=== PATIENT | female | born 1965 | race Caucasian/White ===

== ENCOUNTER → 2018-10-29 | Outpatient (CLI) | payer BC ==
--- NOTE | 2018-10-29 14:17 | BD ---
EXAMINATION TYPE: Axial Bone Density DATE OF EXAM: 10/29/2018 COMPARISON: 09/19/2016 CLINICAL HISTORY: Postmenopausal female. Osteoporosis screening. Height: 59 IN Weight: 146 LBS Secondary Osteoporosis: Current Tobacco Use: YES RISK FACTORS HISTORY OF: Active: YES Postmenopausal woman: AGE 43 EXAM MEASUREMENTS: Bone mineral densitometry was performed using the [employer] System. Bone mineral density as measured about the Lumbar spine is: ----- L1-L4(G/cm2): 1.008 T Score Values are as follows: ----- L2: -2.4 ----- L3: -1.3 ----- L4: -0.7 ----- L1-L4: -1.4 Bone mineral density has: NO CHANGE 0.0% since study of: 09/19/2016 Bone mineral density about the R hip (g/cm2): 0.830 Bone mineral density about the L hip (g/cm2): 0.866 T Score values are as follows: -----R Neck: -1.5 -----L Neck: -1.2 -----R Total: -0.8 -----L Total: -0.5 Bone mineral density has: Increased 0.4% since study of: 09/19/2016 IMPRESSION: Osteopenia (T Score between -2.5 and -1). There is slightly increased risk of fracture and the patient may be considered for treatment. Re-Screen 2-5 years. NOTE: T-SCORE=SD OF THE YOUNG ADULT MEAN.
--- NOTE | 2018-11-02 07:38 | MM ---
Reason for exam: screening (asymptomatic). Last mammogram was performed 2 years and 1 month ago. History: Patient is postmenopausal. Family history of breast cancer in maternal aunt at age 60. Physical Findings: A clinical breast exam by your physician is recommended on an annual basis and results should be correlated with mammographic findings. MG 3D Screening Mammo W/Cad Bilateral CC and MLO view(s) were taken. Prior study comparison: September 19, 2016, bilateral MG 3d screening mammo w/cad. March 23, 2015, bilateral MG diagnostic mammo w CAD MIKE. The breast tissue is heterogeneously dense. This may lower the sensitivity of mammography. No significant changes when compared with prior studies. ASSESSMENT: Benign, BI-RAD 2 RECOMMENDATION: Routine screening mammogram of both breasts in 1 year.
== END | disposition home or self-care (01) ==
LOC: RADMAMWWP 12:52
PROVIDERS: ATTEND Obstetrics & Gynecology
DX: Z12.31 Encounter for screening mammogram for malignant neoplasm of breast (principal); Z80.3 Family history of malignant neoplasm of breast; M85.80 Other specified disorders of bone density and structure, unspecified site; Z78.0 Asymptomatic menopausal state
CPT/HCPCS: 77063; 77067; 77080

== ENCOUNTER → 2018-12-02 | Outpatient (CLI) | payer BC ==
[2018-12-02 11:17] LABS: Basophils % (A) 1 %; Eosinophils # (A) 0.1 k/uL (0-0.7); Eosinophils % (A) 1 %; HCT 44.5 % (34.0-46.0); HGB 14.4 gm/dL (11.4-16.0); Lymphocytes # (A) 1.3 k/uL (1.0-4.8); Lymphocytes % (A) 23 %; MCH 30.3 pg (25.0-35.0); MCHC 32.3 g/dL (31.0-37.0); Mean Platelet Volume 8.8; Monocytes # (A) 0.4 k/uL (0-1.0); Monocytes % (A) 6 %; Neutrophils # (A) 3.7 k/uL (1.3-7.7); Neutrophils % (A) 66 %; Platelet Count 188 k/uL (150-450); RBC 4.74 m/uL (3.80-5.40); RDW 12.8 % (11.5-15.5); WBC 5.6 k/uL (3.8-10.6)
[2018-12-02 18:35] LABS: Albumin 4.4 g/dL (3.80-4.90); Albumin/Globulin Ratio 2.1 (1.20-2.10); Anion Gap 6.7 mmol/L (4.00-12.00); Calcium 9.4 mg/dL (8.7-10.3); Carbon Dioxide 27.3 mmol/L (21.6-31.8); Globulin 2.1 g/dL (1.6-3.3); LDL Cholesterol,Calculated 133.8 mg/dL (0.0-131.0); Total Bilirubin 0.6 mg/dL (0.2-1.2); Total Protein 6.5 g/dL (6.2-8.2); VLDL Calculation 23.2 mg/dL (5.00-40.00)
[2018-12-02 18:42] LABS: T4, Free (Free Thyroxine) 1.2 ng/dL (0.80-1.80)
== END | disposition home or self-care (01) ==
LOC: LABWHC1 09:55
PROVIDERS: ATTEND Internal Medicine Cardiovascular Disease
DX: Z00.01 Encounter for general adult medical examination with abnormal findings (principal); R00.2 Palpitations
CPT/HCPCS: 36415; 80053; 80061; 84439; 84443; 85025

== ENCOUNTER 2019-09-06 11:55 | Observation (INO) | payer BC ==
[2019-09-06] MEDS ORDERED: ONDANSETRON 4 MG/2 ML VIAL IVP STA (12:25)
[2019-09-06] MEDS ORDERED: KETOROLAC 30 MG/ML 1 ML VIAL IVP STA (12:25)
[2019-09-06] MEDS ORDERED: SODIUM CHLORIDE 0.9% 1,000 ML IV STA (12:25)
--- NOTE | 2019-09-06 12:44 | ED ---
Female Urogenital HPI - General Chief complaint: Urogenital Stated complaint: fever/blood in urine Time Seen by Provider: 09/06/19 12:03 Source: patient Mode of arrival: ambulatory Limitations: no limitations - History of Present Illness Initial comments: Patient is a 54-year-old female presenting to the emergency Department with complaints of right sided flank pain x 10 days. Patient states she has been traveling for the past week when her symptoms began. Patient started having right flank pain that resembled her previous kidney stone pain. Patient then had some blood in her urine and was treated for UTI with Bactrim for the last 10 days. Patient states the pain has not improved and then last night she developed a fever. Patient is also having nausea. Patient went to the urgent care today and was noted to have a fever 103, patient did take 2 Tylenol and then was sent to the ER. Patient states she finished her Bactrim yesterday. Patient has been taking Azo for symptom relief. Patient states she feels like she is not able to pee as much as she thinks she should be able to. Patient admits to history of , cholecystectomy, laparotomy for adhesions. Patient's last bowel movement was yesterday and was normal. Patient denies any other abdominal pain, diarrhea. Patient has no other complaints at this time. Upon arrival to ER, temperature is 99.9, pulse 119, respiratory 22, BP 95/63. 98% on room air. - Related Data Home Medications Medication Instructions Recorded Confirmed Cranberry Fruit Concentrate [Azo 250 mg PO DAILY 09/06/19 09/06/19 Cranberry] Sulfamethox-Tmp 800-160Mg [Bactrim 1 tab PO BID 09/06/19 09/06/19 DS 800-160 mg] Allergies Allergy/AdvReac Type Severity Reaction Status Date / Time Penicillins Allergy Anaphylaxis Verified 09/06/19 12:17 codeine AdvReac Nausea & Verified 09/06/19 12:17 Vomiting erythromycin base AdvReac Nausea & Verified 09/06/19 12:17 Vomiting Review of Systems ROS Statement: Those systems with pertinent positive or pertinent negative responses have been documented in the HPI. ROS Other: All systems not noted in ROS Statement are negative. Past Medical History Past Medical History: No Reported History History of Any Multi-Drug Resistant Organisms: None Reported Past Surgical History: Section, Cholecystectomy Additional Past Surgical History / Comment(s): D&C, Laparotomy, Past Anesthesia/Blood Transfusion Reactions: Motion Sickness, Postoperative N ausea & Vomiting (PONV) Additional Past Anesthesia/Blood Transfusion Reaction / Comment(s): Hx of vertigo Past Psychological History: No Psychological Hx Reported Smoking Status: Current every day smoker - Past Family History Father Family Medical History: Cancer Additional Family Medical History / Comment(s): Prostate CA and Lymphoma. General Exam - General Exam Comments Initial Comments: GENERAL: Well-nourished , flushed appearance, appears uncomfortable. HEAD: Atraumatic, normocephalic. EYES: Pupils equal round and reactive to light, extraocular movements intact, sclera anicteric, conjunctiva are normal. ENT: Nares patent, oropharynx clear without exudates. Moist mucous membranes. NECK: Normal range of motion, supple without lymphadenopathy or JVD. LUNGS: Breath sounds clear to auscultation bilaterally and equal. No wheezes rales or rhonchi. HEART: Regular rate and rhythm without murmurs, rubs or gallops. ABDOMEN: Positive bilateral flank pain as well as right-sided abdominal pain. Soft, normoactive bowel sounds. No guarding, no rebound. No masses appreciated. : Deferred EXTREMITIES: Normal range of motion, no pitting or edema. No clubbing or cyanosis. NEUROLOGICAL: Cranial nerves II through XII grossly intact. Normal speech, normal gait. PSYCH: Normal mood, normal affect. SKIN: Warm, Dry, normal turgor, no rashes or lesions noted. Limitations: no limitations Course Vital Signs 09/06/19 11:56 Temperature 99.9 F H Pulse Rate 119 H Respiratory 22 Rate Blood Pressure 95/63 O2 Sat by Pulse 98 Oximetry Medical Decision Making - Medical Decision Making Patient is a 54-year-old female with right-sided flank pain 10 days. Patient was recently treated for UTI and finished course of Bactrim yesterday. Patient developed fever last night and today. Patient was febrile and tachycardia on arrival. Labs are unimpressive, white count is 2.5. UA is normal. CT without contrast shows no evident renal stone. Probable left adrenal adenoma. Correlate for possible cystitis. Diverticulosis. Patient was given fluids, pain control, Zofran and Reglan for symptoms. Patient continues to have pain. Patient will be admitted for possible pyelonephritis. Patient will be started on Rocephin and will continue with pain control. Case is discussed with Dr. Champion who also evaluated the patient and agrees with plan of care. Patient accepted by Dr. Campos. - Lab Data Result diagrams: 09/06/19 12:54 09/06/19 12:54 Lab Results 09/06/19 09/06/19 09/06/19 Range/Units 12:00 12:54 12:54 WBC 2.5 L (3.8-10.6) k/uL RBC 4.52 (3.80-5.40) m/uL Hgb 14.0 (11.4-16.0) gm/dL Hct 41.2 (34.0-46.0) % MCV 91.2 (80.0-100.0) fL MCH 31.1 (25.0-35.0) pg MCHC 34.1 (31.0-37.0) g/dL RDW 12.5 (11.5-15.5) % Plt Count 131 L (150-450) k/uL Neutrophils % 79 % Lymphocytes % 8 % Monocytes % 7 % Eosinophils % 1 % Basophils % 2 % Neutrophils # 2.0 (1.3-7.7) k/uL Lymphocytes # 0.2 L (1.0-4.8) k/uL Monocytes # 0.2 (0-1.0) k/uL Eosinophils # 0.0 (0-0.7) k/uL Basophils # 0.1 (0-0.2) k/uL Sodium 136 L (137-145) mmol/L Potassium 4.1 (3.5-5.1) mmol/L Chloride 104 (98-107) mmol/L Carbon Dioxide 22 (22-30) mmol/L Anion Gap 10 mmol/L BUN 13 (7-17) mg/dL Creatinine 0.92 (0.52-1.04) mg/dL Est GFR (CKD-EPI)AfAm 81 (>60 ml/min/1.73 sqM) Est GFR (CKD-EPI)NonAf 70 (>60 ml/min/1.73 sqM) Glucose 95 (74-99) mg/dL Plasma Lactic Acid Solomon (0.7-2.0) mmol/L Calcium 9.1 (8.4-10.2) mg/dL Total Bilirubin 0.3 (0.2-1.3) mg/dL AST 42 H (14-36) U/L ALT 27 (9-52) U/L Alkaline Phosphatase 83 (38-126) U/L Total Protein 6.8 (6.3-8.2) g/dL Albumin 4.0 (3.5-5.0) g/dL Urine Color Yellow Urine Appearance Clear (Clear) Urine pH 5.5 (5.0-8.0) Ur Specific [place] 1.022 (1.001-1.035) Urine Protein Negative (Negative) Urine Glucose (UA) Negative (Negative) Urine Ketones Negative (Negative) Urine Blood Moderate H (Negative) Urine Nitrite Negative (Negative) Urine Bilirubin Negative (Negative) Urine Urobilinogen <2.0 (<2.0) mg/dL Ur Leukocyte Esterase Negative (Negative) Urine RBC 2 (0-5) /hpf Urine WBC <1 (0-5) /hpf Ur Squamous Epith Cells 1 (0-4) /hpf Urine Mucus Rare H (None) /hpf 09/06/19 Range/Units 12:54 WBC (3.8-10.6) k/uL RBC (3.80-5.40) m/uL Hgb (11.4-16.0) gm/dL Hct (34.0-46.0) % MCV (80.0-100.0) fL MCH (25.0-35.0) pg MCHC (31.0-37.0) g/dL RDW (11.5-15.5) % Plt Count (150-450) k/uL Neutrophils % % Lymphocytes % % Monocytes % % Eosinophils % % Basophils % % Neutrophils # (1.3-7.7) k/uL Lymphocytes # (1.0-4.8) k/uL Monocytes # (0-1.0) k/uL Eosinophils # (0-0.7) k/uL Basophils # (0-0.2) k/uL Sodium (137-145) mmol/L Potassium (3.5-5.1) mmol/L Chloride (98-107) mmol/L Carbon Dioxide (22-30) mmol/L Anion Gap mmol/L BUN (7-17) mg/dL Creatinine (0.52-1.04) mg/dL Est GFR (CKD-EPI)AfAm (>60 ml/min/1.73 sqM) Est GFR (CKD-EPI)NonAf (>60 ml/min/1.73 sqM) Glucose (74-99) mg/dL Plasma Lactic Acid Solomon 0.8 (0.7-2.0) mmol/L Calcium (8.4-10.2) mg/dL Total Bilirubin (0.2-1.3) mg/dL AST (14-36) U/L ALT (9-52) U/L Alkaline Phosphatase (38-126) U/L Total Protein (6.3-8.2) g/dL Albumin (3.5-5.0) g/dL Urine Color Urine Appearance (Clear) Urine pH (5.0-8.0) Ur Specific [place] (1.001-1.035) Urine Protein (Negative) Urine Glucose (UA) (Negative) Urine Ketones (Negative) Urine Blood (Negative) Urine Nitrite (Negative) Urine Bilirubin (Negative) Urine Urobilinogen (<2.0) mg/dL Ur Leukocyte Esterase (Negative) Urine RBC (0-5) /hpf Urine WBC (0-5) /hpf Ur Squamous Epith Cells (0-4) /hpf Urine Mucus (None) /hpf Disposition Clinical Impression: Pyelonephritis Disposition: ADMITTED IP TO THIS HOSP Condition: Stable Is patient prescribed a controlled substance at d/c from ED?: No Referrals: Krish Padilla DO [Primary Care Provider] - 1-2 days Decision Date: 09/06/19 Decision Time: 15:40
[2019-09-06 13:19] LABS: Appearance,Urine Clear (Clear); Bilirubin,Urine Negative (Negative); Blood,Urine Moderate (Negative); Color,Urine Yellow; Glucose,Urine (UA) Negative (Negative); Ketones,Urine Negative (Negative); Leukocyte Esterase,Urine Negative (Negative); Mucus,Urine Rare /hpf; Nitrite,Urine Negative (Negative); PH, Urine 5.5 (5.0-8.0); Protein,Urine Negative (Negative); RBC,Urine 2 /hpf (0-5); Specific Gravity,Urine 1.022 (1.001-1.035); Squamous Epithelial Cell,Urine 1 /hpf (0-4); Urobilinogen,Urine <2.0 mg/dL (<2.0)
[2019-09-06 13:26] LABS: Calcium 9.1 mg/dL (8.4-10.2); Total Bilirubin 0.3 mg/dL (0.2-1.3); Total Protein 6.8 g/dL (6.3-8.2)
[2019-09-06 13:31] LABS: Basophils # (A) 0.1 k/uL (0-0.2); Basophils % (A) 2 %; Eosinophils % (A) 1 %; HCT 41.2 % (34.0-46.0); Lymphocytes # (A) 0.2 k/uL (1.0-4.8); Lymphocytes % (A) 8 %; MCH 31.1 pg (25.0-35.0); MCHC 34.1 g/dL (31.0-37.0); MCV 91.2 fL (80.0-100.0); Mean Platelet Volume 6.7; Monocytes # (A) 0.2 k/uL (0-1.0); Monocytes % (A) 7 %; Neutrophils % (A) 79 %; Platelet Count 131 k/uL (150-450); RBC 4.52 m/uL (3.80-5.40); RDW 12.5 % (11.5-15.5); WBC 2.5 k/uL (3.8-10.6)
[2019-09-06 13:35] LABS: Potassium 4.1 mmol/L (3.5-5.1)
--- NOTE | 2019-09-06 13:46 | CT ---
EXAMINATION TYPE: CT abdomen pelvis wo con DATE OF EXAM: 09/06/2019 COMPARISON: Previous CT 02/22/2010 HISTORY: Fever. Blood in urine. History of renal stones CT DLP: 514.5 mGycm Automated exposure control for dose reduction was used. TECHNIQUE: Helical acquisition of images from the lung bases through the pelvis. FINDINGS: Lack of contrast likely compromises the sensitivity of the exam. LUNG BASES: No significant abnormality is appreciated. AORTA: No significant abnormality is appreciated. LIVER/GB: Patient is post cholecystectomy. Surgical clip is present adjacent to inferior margin of th e right lobe of the liver. PANCREAS: No significant abnormality is seen. SPLEEN: No significant abnormality is seen. ADRENALS: Centimeter low dense left adrenal mass likely represents an adenoma. KIDNEYS: No significant abnormality is seen. REPRODUCTIVE ORGANS: No significant abnormality is seen. URINARY BLADDER: Bladder wall thickening is indeterminate, correlate for possible cystitis. BOWEL: Diverticular changes noted in the sigmoid colon. Appendix is normal. FREE AIR: No Free Air is visible. ASCITES: None visible. PELVIC ADENOPATHY: None visualized. RETROPERITONEAL ADENOPATHY: No Retroperitoneal Adenopathy visible. OSSEOUS STRUCTURES: Degenerative disc changes are noted in the visualized spine. IMPRESSION: NONCONTRAST EXAM. POSTOP CHANGES. NO EVIDENT RENAL CALCULUS. PROBABLE LEFT ADRENAL ADENOMA. CORRELATE FOR POSSIBLE CYSTITIS. DIVERTICULOSIS.
[2019-09-06] MEDS ORDERED: MORPHINE SULFATE 4 MG/ML SYRINGE IVP STA (13:53)
[2019-09-06] MEDS ORDERED: METOCLOPRAMIDE 5 MG/ML 2 ML VIAL IVP STA (13:53)
[2019-09-06] MEDS ORDERED: NALOXONE 0.4 MG/ML 1 ML VIAL IV PRN (15:34)
[2019-09-06] MEDS ORDERED: ONDANSETRON 4 MG/2 ML VIAL IVP PRN (15:34)
[2019-09-06] MEDS ORDERED: MORPHINE SULFATE 4 MG/ML SYRINGE IV PRN (15:34)
[2019-09-06] MEDS ORDERED: HYDROmorphone 0.5 MG/0.5 ML SYRINGE IVP STA (15:37)
[2019-09-06] MEDS: SODIUM CHLORIDE 0.9% 1,000 ML IV SCH (16:24)
[2019-09-06] MEDS: traMADol 50 MG TAB PO PRN (22:50)
[2019-09-07] MEDS ORDERED: traMADol 50 MG TAB ONE (05:45)
[2019-09-07] MEDS: ACETAMINOPHEN TAB 325 MG TAB PO PRN ×2 (10:37→20:02)
[2019-09-07] MEDS: SODIUM CHLORIDE 0.9% 1,000 ML IV SCH (10:41)
[2019-09-07] MEDS: traMADol 50 MG TAB PO PRN ×2 (11:30→21:40)
--- NOTE | 2019-09-07 15:05 | P.HPIM ---
History of Present Illness 54-year-old female came in with complaints of pain in the left lower paraspinal area patient was believed to have urinary tract infection because of which patient was admitted here. Patient denied any dysuria was having fever of 103 yesterday although patient didn't have any fever since her hospitalization here. Patient is on Bactrim urine is bit abnormal. I do not expect blood cultures to be positive her urine cultures to be positive as patient was partially treated with Bactrim patient was on Bactrim for urinary tract infection prescribed her primary care physician although patient has not been taking it on regular basis, patient had a CAT scan of the abdomen which did show cystitis and patient does have some suprapubic tenderness because of which I'll continue treatment for urinary tract infection with Rocephin patient is in cultures are positive as an outpatient which showed E. coli which is sensitive to cephalosporins and patient is on 2 mg of ceftriaxone which is an appropriate dose of cephalosporin for her UTI. Patient blood pressure is low normal patient is on IV fluids for that. Review of Systems REVIEW OF SYSTEMS: CONSTITUTIONAL: No fever, no malaise, no fatigue. HEENT: No recent visual problems or hearing problems. Denied any sore throat. CARDIOVASCULAR: No chest pain, orthopnea, PND, no palpitations, no syncope. PULMONARY: No shortness of breath, no cough, no hemoptysis. GASTROINTESTINAL: No diarrhea, no nausea, no vomiting, no abdominal pain. NEUROLOGICAL: No headaches, no weakness, no numbness. HEMATOLOGICAL: Denies any bleeding or petechiae. GENITOURINARY: As mentioned in HPI MUSCULOSKELETAL/RHEUMATOLOGICAL: Denies any joint pain, swelling, or any muscle pain. ENDOCRINE: Denies any polyuria or polydipsia. The rest of the 14-point review of systems is negative. Past Medical History Past Medical History: No Reported History History of Any Multi-Drug Resistant Organisms: None Reported Past Surgical History: Section, Cholecystectomy Additional Past Surgical History / Comment(s): D&C, Laparotomy, Past Anesthesia/Blood Transfusion Reactions: Motion Sickness, Postoperative Nausea & Vomiting (PONV) Additional Past Anesthesia/Blood Transfusion Reaction / Comment(s): Hx of vertigo Past Psychological History: No Psychological Hx Reported Smoking Status: Current every day smoker - Past Family History Father Family Medical History: Cancer Additional Family Medical History / Comment(s): Prostate CA and Lymphoma. Medications and Allergies Home Medications Medication Instructions Recorded Confirmed Type Cranberry Fruit Concentrate [Azo 250 mg PO DAILY 09/06/19 09/06/19 History Cranberry] Sulfamethox-Tmp 800-160Mg [Bactrim 1 tab PO BID 09/06/19 09/06/19 History DS 800-160 mg] Allergies Allergy/AdvReac Type Severity Reaction Status Date / Time Penicillins Allergy Anaphylaxis Verified 09/06/19 12:17 codeine AdvReac Nausea & Verified 09/06/19 12:17 Vomiting erythromycin base AdvReac Nausea & Verified 09/06/19 12:17 Vomiting Physical Exam Vitals: Vital Signs Temp Pulse Pulse Resp BP BP BP 09/07/19 12:19 98.2 F 89 20 97/57 09/07/19 09:30 99.5 F 09/07/19 07:57 105 H 09/07/19 07:56 99.5 F 105 H 20 97/55 09/07/19 00:00 87 16 09/06/19 22:59 99.1 F 87 16 113/70 09/06/19 20:48 98.7 F 91 16 96/57 09/06/19 17:30 98.2 F 86 18 99/66 09/06/19 17:05 84 18 100/69 Pulse Ox 09/07/19 12:19 94 L 09/07/19 09:30 09/07/19 07:57 09/07/19 07:56 94 L 09/07/19 00:00 09/06/19 22:59 97 09/06/19 20:48 96 09/06/19 17:30 97 09/06/19 17:05 98 Intake and Output 09/07/19 09/07/19 09/07/19 06:59 14:59 22:59 Intake Total 600 Output Total 550 800 Balance -550 -200 Intake: Oral 600 Output: Urine 550 800 Other: Voiding Method Toilet Toilet PHYSICAL EXAMINATION: GENERAL: The patient is alert and oriented x3, not in any acute distress. Well developed, well nourished. HEENT: Pupils are round and equally reacting to light. EOMI. No scleral icterus. No conjunctival pallor. Normocephalic, atraumatic. No pharyngeal erythema. No thyromegaly. CARDIOVASCULAR: S1 and S2 present. No murmurs, rubs, or gallops. PULMONARY: Chest is clear to auscultation, no wheezing or crackles. ABDOMEN: Soft, minimal suprapubic tenderness no costo vertebral angle tenderness, nondistended, normoactive bowel sounds. No palpable organomegaly. MUSCULOSKELETAL: No joint swelling or deformity. EXTREMITIES: No cyanosis, clubbing, or pedal edema. NEUROLOGICAL: Gross neurological examination did not reveal any focal deficits. SKIN: No rashes. Results CBC & Chem 7: 09/06/19 12:54 09/06/19 12:54 Thrombosis Risk Factor Assmnt - Choose All That Apply Each Factor Represents 1 point: Age 41-60 years, Obesity (BMI >25), Varicose veins Other congenital or acquired thrombophilia - If yes, enter type in comment: No Thrombosis Risk Factor Assessment Total Risk Factor Score: 3 Thrombosis Risk Factor Assessment Level: Moderate Risk Assessment and Plan Plan: Possible urinary tract infection/cystitis: Patient will be continued on Rocephin, I do not expect have urine cultures to be positive considering that patient was partially treated with Bactrim. Patient had fevers up because of which patient will need 5-7 days of antibiotic. -Hypotension: Secondary to infection and sepsis patient with pain on IV fluids -DVT prophylaxis early ambulation
[2019-09-07 20:25] VITALS: RESP 18
[2019-09-08] MEDS: SODIUM CHLORIDE 0.9% 1,000 ML IV SCH (05:45)
[2019-09-08] MEDS: ACETAMINOPHEN TAB 325 MG TAB PO PRN ×2 (06:22→15:24)
[2019-09-08] MEDS: traMADol 50 MG TAB PO PRN (08:41)
[2019-09-08 16:23] VITALS: BP 118/80; PULSE 86; TEMP 98.5
--- NOTE | 2019-09-09 09:46 | P.DS ---
Providers Date of admission: 09/06/19 16:04 Expected date of discharge: 09/08/19 Attending physician: Neena Campos Primary care physician: Krish Proctor Hospital Course: Final diagnosis Possible urinary tract infection/cystitis Fever Hypotension secondary to infection and sepsis DVT prophylaxis Discharge disposition Patient is being discharged in a stable condition with guarded prognosis to home and will follow-up with her primary care provider upon discharge. Patient will continue with short course of oral antibiotics in the form of Ceftin 500 mg twice daily for the next 5 days. Total time taken is 35 minutes. History of present illness This is a 54-year-old female who was recently admitted with complaints of pain in the left lower paraspinal area and also had a urinary tract infection that was being treated in the outpatient setting with Bactrim and was being closely monitored. Patient did have fevers prior to admission and blood cultures and urine cultures were obtained and thus far have been negative. Patient denies any chest pain, shortness of breath, or palpitations at this time. Patient Is afebrile today. Patient denies any nausea or vomiting and is tolerating diet. Patient states that her left lower flank pain has subsided. Patient would like to go home today. Currently patient's condition is stable with much improvement and is ready for discharge. She will continue short course of oral antibiotics and follow-up with primary care provider upon discharge. Guarded prognosis. On exam vital signs are stable. There is 98.1F, pulse is 81, respirations are 18, blood pressure is 106/73, oxygen saturation is 95% on room air. Cardio S1 and S2 are present. Respiratory system shows clear to auscultation. Abdomen is soft and nontender. No CVA tenderness noted. Nervous system shows no focal deficits and gait is steady. Please refer to medication reconciliation sheet for a list of medications. Patient Condition at Discharge: Stable Plan - Discharge Summary New Discharge Prescriptions: New Cefuroxime Axetil [Ceftin] 500 mg PO BID 5 Days #10 tab traMADol HCl [Ultram] 50 mg PO Q6H PRN #12 tab PRN Reason: Moderate Pain Ondansetron HCl [Zofran] 4 mg PO TID PRN #12 tablet PRN Reason: Nausea Continue Cranberry Fruit Concentrate [Azo Cranberry] 250 mg PO DAILY Discontinued Sulfamethox-Tmp 800-160Mg [Bactrim DS 800-160 mg] 1 tab PO BID Discharge Medication List Cranberry Fruit Concentrate [Azo Cranberry] 250 mg PO DAILY 09/06/19 [History] Cefuroxime Axetil [Ceftin] 500 mg PO BID 5 Days #10 tab 09/08/19 [Rx] Ondansetron HCl [Zofran] 4 mg PO TID PRN #12 tablet 09/08/19 [Rx] traMADol HCl [Ultram] 50 mg PO Q6H PRN #12 tab 09/08/19 [Rx] Follow up Appointment(s)/Referral(s): Krish Padilla DO [Primary Care Provider] - 1-2 days Patient Instructions/Handouts: Urinary Tract Infection in Women (GEN), Kidney Infection (GEN), Flank Pain (ED) Activity/Diet/Wound Care/Special Instructions: Activity Limited until follow-up Continue complete course of antibiotics until finished Follow-up with primary care provider upon discharge May use Tylenol and/or Motrin for pain and if fever develops Continue with fluids and rest Discharge Disposition: HOME SELF-CARE
== END 2019-09-08 16:59 | disposition home or self-care (01) ==
LOC: EC 11:55 → 6PED 16:04
PROVIDERS: ADMIT Hospitalist; ATTEND Hospitalist
DX: A41.9 Sepsis, unspecified organism (principal); I95.9 Hypotension, unspecified; R10.9 Unspecified abdominal pain; R31.9 Hematuria, unspecified; Z90.49 Acquired absence of other specified parts of digestive tract; F17.200 Nicotine dependence, unspecified, uncomplicated; Z88.1 Allergy status to other antibiotic agents; Z88.5 Allergy status to narcotic agent; Z88.0 Allergy status to penicillin; E66.9 Obesity, unspecified; Z68.29 Body mass index [BMI] 29.0-29.9, adult; I83.90 Asymptomatic varicose veins of unspecified lower extremity; Z87.442 Personal history of urinary calculi; Z87.440 Personal history of urinary (tract) infections; Z80.7 Family history of other malignant neoplasms of lymphoid, hematopoietic and related tissues; Z80.42 Family history of malignant neoplasm of prostate
CPT/HCPCS: 96365; 96375 ×2; 96376; 96361; 99284; 36415; 80053; 83605; 85025; 81001; 87040; 74176; G0378 ×3; J2270; J2765; J2405 ×2; J0696 ×3; J1885; J1170

== ENCOUNTER → 2020-05-03 | Outpatient (CLI) | payer BC ==
--- NOTE | 2020-05-08 11:09 | MM ---
Reason for exam: screening (asymptomatic). Last mammogram was performed 1 year and 6 months ago. History: Patient is postmenopausal. Family history of breast cancer in maternal aunt at age 60. Physical Findings: A clinical breast exam by your physician is recommended on an annual basis and results should be correlated with mammographic findings. MG 3D Screening Mammo W/Cad Bilateral CC and MLO view(s) were taken. Prior study comparison: October 29, 2018, bilateral MG 3d screening mammo w/cad. September 19, 2016, bilateral MG 3d screening mammo w/cad. There are scattered fibroglandular densities. No significant changes when compared with prior studies. ASSESSMENT: Negative, BI-RAD 1 RECOMMENDATION: Routine screening mammogram of both breasts in 1 year.
== END | disposition home or self-care (01) ==
LOC: RADMAMWWP 14:40
PROVIDERS: ATTEND Obstetrics & Gynecology
DX: Z12.31 Encounter for screening mammogram for malignant neoplasm of breast (principal); Z80.3 Family history of malignant neoplasm of breast
CPT/HCPCS: 77063; 77067

== ENCOUNTER → 2020-05-22 | Outpatient (CLI) | payer BC ==
--- NOTE | 2020-05-23 06:56 | US ---
EXAMINATION TYPE: US kidneys/renal and bladder DATE OF EXAM: 05/22/2020 COMPARISON: NONE CLINICAL HISTORY: R10.9 unspecified abdominal pain, R31.9 hematuria. UTI, back pain, hematuria EXAM MEASUREMENTS: Right Kidney: 10.3 x 3.9 x 4.1 cm Left Kidney: 9.9 x 4.4 x 4.4 cm Right Kidney: No evidence of hydronephrosis Left Kidney: no evidence of hydronephrosis Bladder: appears wnl Bilateral Jets seen: yes There is no evidence for hydronephrosis at this point in time. No nephrolithiasis is seen. No jennifer s are identified. The urinary bladder is anechoic. Bilateral ureteral jets are seen. IMPRESSION: No distinct abnormality is appreciated.
== END | disposition home or self-care (01) ==
LOC: RADUSWWP 16:18
PROVIDERS: ATTEND Family Medicine
DX: N30.00 Acute cystitis without hematuria (principal); R31.9 Hematuria, unspecified; R10.9 Unspecified abdominal pain
CPT/HCPCS: 76770

== ENCOUNTER → 2020-07-16 | Outpatient (CLI) | payer BC ==
--- NOTE | 2020-07-17 07:08 | US ---
EXAMINATION TYPE: US venous doppler duplex LE LT DATE OF EXAM: 07/16/2020 4:13 PM COMPARISON: NONE CLINICAL HISTORY: M79.605 Pain in left leg, R22.42 mas/lump left. Pain left leg SIDE PERFORMED: Left TECHNIQUE: The lower extremity deep venous system is examined utilizing real time linear array sonog ross with graded compression, doppler sonography and color-flow sonography. VESSELS IMAGED: External Iliac Vein (EIV) Common Femoral Vein Deep Femoral Vein Greater Saphenous Vein * Femoral Vein Popliteal Vein Small Saphenous Vein * Proximal Calf Veins (* superficial vessels) Left Leg: Negative for DVT Results called to Ondina at Dr's office at time of exam IMPRESSION: No evidence for DVT at this time.
== END | disposition home or self-care (01) ==
LOC: RADUSWWP 15:50
PROVIDERS: ATTEND Family Medicine
DX: I83.812 Varicose veins of left lower extremity with pain (principal); M79.605 Pain in left leg; R22.42 Localized swelling, mass and lump, left lower limb

== ENCOUNTER → 2020-09-04 | Outpatient (CLI) | payer BC ==
--- NOTE | 2020-09-04 16:27 | XR ---
EXAMINATION TYPE: XR abdomen 2V DATE OF EXAM: 09/04/2020 12:04 PM CLINICAL HISTORY: Gross hematuria. Right flank pain. History of kidney stones. TECHNIQUE: Supine images of the abdomen and pelvis were obtained COMPARISON: [facility] 05/26/2013. CT abdomen pelvis 09/06/2019. FINDINGS: Right upper quadrant surgical clips. Nonspecific bowel gas pattern. Renal shadows are parti ally obscured by overlying bowel. There is a 10 mm calcification within the left hemipelvis and 7 mm calcification within the right hemipelvis. Left pelvic phlebolith. No organomegaly. No pneumoperitone um. Degenerative changes of the spine. IMPRESSION: 1. Round somewhat popcorn-like calcifications of the pelvis measuring 7 mm and 10 mm. Primary differ ential consideration given to calcified uterine fibroids. Less likely bladder calculi. 2. Renal shadows obscured by overlying bowel.
== END | disposition home or self-care (01) ==
LOC: RADXRYALE 11:46
PROVIDERS: ATTEND Physician Assistant Medical
DX: R93.5 Abnormal findings on diagnostic imaging of other abdominal regions, including retroperitoneum (principal); R31.0 Gross hematuria
CPT/HCPCS: 74019

== ENCOUNTER → 2020-10-03 | Outpatient (CLI) | payer BC ==
--- NOTE | 2020-10-03 16:00 | US ---
EXAMINATION TYPE: US pelvic complete DATE OF EXAM: 10/03/2020 COMPARISON: Correlation CT 09/06/2019 and radiograph 09/04/2020 CLINICAL HISTORY: 55-year-old female R93.8 Abnormal findings on diagnostic imaging. Potential fibroid seen within pelvis on abd xray, previous CT abd pelvic US showed no fibroid TECHNIQUE: TA. Transabdominal sonographic images of the pelvis were acquired. Date of LMP: 10+yrs ago FINDINGS: EXAM MEASUREMENTS: Uterus: 4.7 x 3.3 x 3.6 cm Endometrial Stripe: 0.4 cm Right Ovary: 1.7 x 1.3 x 0.7 cm Left Ovary: not seen 1. Uterus: Anteverted and otherwise wnl. However, detailed assessment is limited due to small, postm enopausal structures and transabdominal technique. 2. Endometrium: wnl 3. Right Ovary: wnl 4. Left Ovary: not seen due to atrophy and bowel gas 5. Bilateral Adnexa: wnl 6. Posterior cul-de-sac: wnl IMPRESSION: 1. Limited assessment due to small, postmenopausal structures and transabdominal technique. No discer nible uterine fibroids. However, again, assessment is limited. 2. Left ovary could not be visualized probably combination of bowel gas and postmenopausal atrophy.
== END | disposition home or self-care (01) ==
LOC: RADUSWWP 13:34
PROVIDERS: ATTEND Family Medicine
DX: N83.312 Acquired atrophy of left ovary (principal); Z78.0 Asymptomatic menopausal state
CPT/HCPCS: 76856

== ENCOUNTER → 2021-06-18 | Outpatient (CLI) | payer OTHER ==
--- NOTE | 2021-06-18 09:46 | XR ---
EXAM TYPE: LUMBAR SPINE X RAY SERIES COMPARISON: NONE HISTORY: Pain TECHNIQUE: 4 views are submitted. FINDINGS: Alignment is anatomic. The pedicles are intact. The transverse processes are intact. There is mult ilevel moderate to severe degenerative disc disease. There is facet arthropathy particularly noted at L4-5 and L5-S1. Suspect foraminal encroachment. No spondylolisthesis or spondylolysis. Surgical clip s incidentally noted in the upper abdomen. IMPRESSION: 1. Multilevel moderate to severe degenerative disc disease.
== END | disposition home or self-care (01) ==
LOC: RADXRYALE 09:17
PROVIDERS: ATTEND Physician Assistant Medical
DX: M51.36 Other intervertebral disc degeneration, lumbar region (principal)
CPT/HCPCS: 72110

== ENCOUNTER → 2021-09-09 | Outpatient (CLI) | payer OTHER ==
--- NOTE | 2021-09-10 13:33 | MM ---
Reason for exam: screening (asymptomatic). Last mammogram was performed 1 year and 4 months ago. History: Patient is postmenopausal. Family history of breast cancer in maternal aunt at age 60. Physical Findings: A clinical breast exam by your physician is recommended on an annual basis and results should be correlated with mammographic findings. MG 3D Screening Mammo W/Cad Bilateral CC and MLO view(s) were taken. Prior study comparison: May 03, 2020, bilateral MG 3d screening mammo w/cad. October 29, 2018, bilateral MG 3d screening mammo w/cad. September 19, 2016, bilateral MG 3d screening mammo w/cad. There are scattered fibroglandular densities. No significant changes when compared with prior studies. ASSESSMENT: Benign, BI-RAD 2 RECOMMENDATION: Routine screening mammogram of both breasts in 1 year.
== END | disposition home or self-care (01) ==
LOC: RADMAMWWP 07:56
PROVIDERS: ATTEND Family Medicine
DX: Z12.31 Encounter for screening mammogram for malignant neoplasm of breast (principal)
CPT/HCPCS: 77063; 77067

== ENCOUNTER → 2021-09-20 | Outpatient (CLI) | payer OTHER ==
--- NOTE | 2021-09-21 04:57 | MR ---
EXAMINATION TYPE: MR lumbar spine wo con DATE OF EXAM: 09/20/2021 COMPARISON: None HISTORY: Chronic low back pain, right side. Multiplanar multiecho imaging of the lumbar spine without contrast. Vertebra have normal alignment. Disc spaces are fairly normal. There is no compression fracture. Ther e is developmentally large spinal canal. There is no spinal stenosis. Lumbar nerve roots appear kee l. The neuroforamina are widely patent. The posterior elements are intact. There is no evidence of fo jacy bone destruction. There is no lumbar paraspinal mass. Sacroiliac joints are intact. IMPRESSION: Negative CT scan of the lumbar spine. No fracture.
== END | disposition home or self-care (01) ==
LOC: RADMRIMAIN 18:04
PROVIDERS: ATTEND Family Medicine
DX: M54.59 Other low back pain (principal)
CPT/HCPCS: 72148

== ENCOUNTER → 2021-09-27 | Outpatient (CLI) | payer OTHER ==
--- NOTE | 2021-09-27 15:11 | BD ---
EXAMINATION TYPE: Axial Bone Density DATE OF EXAM: 09/27/2021 COMPARISON: 10.29.2018 CLINICAL HISTORY: 56 YR OLD FEMALE......ICD-10 CODE: M85.80 DISORDER OF BD Height: 58.6 Weight: 131 FRAX RISK QUESTIONS: Family History (Parent hip fracture): YES Glucocorticoids (More than 3mos): ONLY FOR ILLNESS, APROX ONCE YRLY (Ex: prednisone, prednisolone, methylprednisolone, dexamethasone, and hydrocortisone). 3. Menopause before 45: AT 43 5. Chronic liver disease: HX OF HEP C Current Tobacco Use: YES RISK FACTORS HISTORY OF: Family History of Osteoporosis: MOTHER, GR MOTHER Postmenopausal woman: YES, AT 43 YRS OLD Hyperparathyroidism: NO Adrenal Insufficiency: NO MEDICATIONS: Prednisone or other steroids: YES, STOPPED 3 DAYS AGO Additional Medications: REFLUX MEDS Additional History: REFLUX EXAM MEASUREMENTS: Bone mineral densitometry was performed using the [employer] System. Bone mineral density as measured about the Lumbar spine is: ----- L1-L4(G/cm2): 0.965 T Score Values are as follows: ----- L1: -1.9 ----- L2: -2.4 ----- L3: -2.1 ----- L4: -1.0 ----- L1-L4: -1.8 Bone mineral density has: Decreased -5.3% since study of: 10.29.2018 Bone mineral density about the R hip (g/cm2): 0.882 Bone mineral density about the L hip (g/cm2): 0.907 T Score values are as follows: -----R Neck: -1.3 -----L Neck: -1.5 -----R Total: -1.0 -----L Total: -0.8 Bone mineral density has: Decreased -3.3% since study of: 10.29.2018 FRAX%s: THERE IS A 14.8% CHANCE FOR A MAJOR OSTEOPOROTIC FX AND A 1.1% FOR HIP.....PROBABILITY FOR FX IN 10 YRS TIME IMPRESSION: Osteopenia (T Score between -2.5 and -1). There is slightly increased risk of fracture and the patient may be considered for treatment. Re-Screen 2-5 years. NOTE: T-SCORE=SD OF THE YOUNG ADULT MEAN.
== END | disposition home or self-care (01) ==
LOC: RADBDWWP 12:40
PROVIDERS: ATTEND Family Medicine
DX: M85.80 Other specified disorders of bone density and structure, unspecified site (principal)
CPT/HCPCS: 77080

== ENCOUNTER → 2021-09-30 | Outpatient (CLI) | payer OTHER ==
--- NOTE | 2021-09-30 15:59 | XR ---
Right hip HISTORY: Right hip pain 2 views of the right hip Bone mineralization, joint spaces and alignment are maintained. IMPRESSION: Normal right hip, hip MRI may be of benefit.
== END | disposition home or self-care (01) ==
LOC: RADXRYALE 15:10
PROVIDERS: ATTEND Physician Assistant Medical
DX: M25.551 Pain in right hip (principal)
CPT/HCPCS: 73502

== ENCOUNTER → 2022-03-24 | Outpatient (CLI) | payer OTHER ==
[2022-03-24 13:39] VITALS: BP 116/77; PULSE 89; RESP 18; TEMP 98.6
--- NOTE | 2022-03-24 13:57 | P.CON ---
Consult Note - . Consult date: 03/24/22 Assessment/Plan:: HISTORY OF PRESENT ILLNESS: 57 yr old female as a referral from Dr Jones presents today with chronic & severe LBP secondary to multilevel spondylosis and DDD for evaluation. Patient states she has been suffering with lower back pain for the last 9 months. It is 6 out of 10 in intensity, constant, sharp, throbbing, aching sensation in the lower aspect of her lumbar spine were pacer tailbone with radiation of pain to the anterior right hip. Pain is provoked with bending and lifting. Pain is relieved with medications (tramadol, Mobic), topicals, ice, heat, physical therapy for months ago, chiropractic treatments monthly last 1 month ago which are ineffective, daily home stretching regimen and rest. Past Medical History: No Reported History Past Surgical History: Section, Cholecystectomy, D& C, Laparotomy Social History: Current tobacco user. No ETOH abuse. No illicit drug use. and lives with spouse. Family History: Father -Prostate CA and Lymphoma. All: See list Meds: See list REVIEW OF ORGAN SYSTEMS: CONSTITUTIONAL: No fevers or chills. No recent weight loss. HEENT: No visual acuity loss, eye pain, difficulties with hearing. No nosebleeds. No difficulty swallowing. RESPIRATORY: Denies any troubles with breathing or dyspnea on exertion. CARDIOVASCULAR: Denies any chest pain, palpitations, or recent heart attacks. GASTROINTESTINAL: Denies fatty food intolerance. Has change in bowel habits and gas bloat. GENITOURINARY: Denies any blood in urine. Has increased urinary frequency. NEUROLOGICAL: + numbness and tingling along the distal extremities. No seizure disorders or headaches. MUSCULOSKELETAL: + back pain SKIN: No skin cancer. No rash. PSYCHIATRIC: Denies current depression or suicidal thoughts. ENDOCRINE: Denies current thyroid disorders. Denies any blood sugar glucose intolerance. HEME/LYMPHATIC: Denies any lumps and bumps around the neck. History of deep venous thrombosis. ALLERGY/IMMUNOLOGY: No immunoglobulin therapy. No immune deficiencies. BREAST: Denies current breast lumps, pain or nipple discharge. Physical Examinations : Constitutional : Cooperative , not in acute distress . HEENT: Neck supple. No Lymphadenopathy. Normal thyroid size . Eyes no ptosis , no icterus, no photophobia . Hearing intact. Normal oropharynx. No Thrush. Respiratory : Chest clear to auscultations bilaterally. No wheezing. No rhonchi. Cardiovascular : Regular rate and rhythm , S1 / S2. No S3 . No S4. Gastrointestinal : Abdomen soft. No tenderness. Bowel sounds x 4. No organomegaly . Genitourinary : Deferred. Neurologic : Cranial nerve II to XII intact. No focal neurological deficits. Psychiatric : alert & oriented x 3. Matching mood & appropriate affect. Judgment & insight intact. Lymphatic No Lymphadenopathy. Musculoskeletal : Cervical Spine Motor strength in the deltoid and biceps: Normal right side. Normal Left side Motor strength biceps and the wrist extensors: Normal right side . Normal left side Motor strength in the triceps muscle: Normal right side. Normal left side Deep tendon reflexes: Normal at the biceps. Normal at Brachioradialis. Normal at triceps Cervical facet loading test: positive bilaterally Spurling test: positive bilaterally Neck distraction test: positive bilaterally Scot sign: positive bilaterally Lumbar spine Motor strength lower extremities ,thigh and legs 5/5 Right side , 5/5 Left side Deep tendon reflexes : Normal Knee Jerk. Normal Ankle Jerk Vertebral body tenderness over Lumbar facet Loading Test: positive Right / positive Left Range of motion of the lumbar spine Flexion 30 degrees, extension 10 degrees Straight Leg Raise test: Left/ Right positive at degree Alicia test: positive right / positive left. Severe tenderness over the Sacroiliac joint on the Right / Left sides Gaenslen test: positive on the right Seated flexion test: positive on the right Imaging: CT Scan without contrast of the Lumbar spine from 09/21/21 reviewed. Assessment/ Plan : Lumbar DDD, Lumbar spondylosis, R Sacroiliitis Recommendation of R SI joint injection, Risks, benefits of procedure discussed and patient verbalized understanding. Denies aspirin or anti- coagulant use or medical history of diabetes. All questions answered. I have spent greater than 50 minutes on patient care today. Dr Reyna was available by phone for the evaluation of this patient. The time was used to review the medical records including relevant urine studies and Prescription history (MAPs), review of the available imaging, evaluation and examination of the patient, coordination of care with the medical staff and if applicable referring physicians, as well as creation of the medical record PQRS Measure Charge Sheet Mode of Arrival: Ambulatory - Pain Location Right Lower Back Non-Pharmacological Interventions: Chiropractic Treatment, Exercise, Heat, Ice, Inactivity, Physical Therapy, Stretching Pharmacological Interventions: PRN Medication, Scheduled Medication, Topical Medication PQRS Narrative: Smoking Status Current every day smoker Blood Pressure 116/77 Pain Intensity [Right Lower 6 Back] Scale Used Numeric (1 - 10) Hx Alcohol Use (MH) No Home Medications: Ambulatory Orders Cranberry Fruit Concentrate [Azo Cranberry] 250 mg PO DAILY 09/06/19 Cefuroxime Axetil [Ceftin] 500 mg PO BID 5 Days #10 tab 09/08/19 ondansetron HCL [Zofran] 4 mg PO TID PRN #12 tablet 09/08/19 traMADol HCl [Ultram] 50 mg PO Q6H PRN #12 tab 09/08/19
== END | disposition home or self-care (01) ==
LOC: PNWHC3 13:00
PROVIDERS: ATTEND Specialist
DX: M51.36 Other intervertebral disc degeneration, lumbar region (principal); M46.1 Sacroiliitis, not elsewhere classified
CPT/HCPCS: 99211

== ENCOUNTER → 2022-04-29 | Outpatient (CLI) | payer OTHER ==
--- NOTE | 2022-04-29 18:55 | US ---
EXAMINATION TYPE: US abdomen limited DATE OF EXAM: 04/29/2022 COMPARISON: None CLINICAL HISTORY: 57-year-old female R94.5 ABNORMAL RESULTS OF LIVER FUNCTION STUDIES. EXAM MEASUREMENTS: Liver Length: 12.0 cm CBD: 0.8 cm Right Kidney: 9.0 x 3.8 x 4.4 cm Pancreas: obscured by overlying midline bowel gas Liver: wnl Gallbladder: surgically absent Evidence for sonographic Her's sign: no CBD: Mildly dilated. Right Kidney: wnl IMPRESSION: Mildly dilated bile duct likely on the basis of postcholecystectomy status. Corroborate with alkaline phosphatase and bilirubin levels. Suboptimal visualization of the pancreas.
== END | disposition home or self-care (01) ==
LOC: RADUSWWP 13:26
PROVIDERS: ATTEND Family Medicine
DX: R94.5 Abnormal results of liver function studies (principal)
CPT/HCPCS: 76705

== ENCOUNTER 2022-08-05 09:55 | Day surgery (SDC) | payer OTHER ==
[2022-08-04 11:43] VITALS: BMI 27.2
[~2022-08-05 09:55] MED LIST: LACTATED RINGERS 1,000 ML IV SCH; LIDOCAINE 1% (10MG/ML) FOR IV START INTRADERMA PRN
[2022-08-05 10:25] VITALS: RESP 16; TEMP 97
[2022-08-05] MEDS ORDERED: ONDANSETRON 4 MG/2 ML VIAL ONE (10:30)
[2022-08-05] MEDS ORDERED: MIDAZOLAM 2 MG/2 ML VIAL ONE (10:32)
[2022-08-05] MEDS ORDERED: fentaNYL (PF) 50 MCG/ML 2 ML AMP ONE (10:32)
[2022-08-05] MEDS ORDERED: methylPREDNISolone ACETATE 80 MG/ML 1 ML VIAL ONE (10:32)
[2022-08-05] MEDS ORDERED: ROPIVACAINE 5 MG/ML 20 ML AMPULE ONE (10:32)
--- NOTE | 2022-08-05 10:46 | P.PCN ---
Date of Procedure: 08/05/22 Procedure(s) Performed: Procedure= Right sacroiliac joints steroid injection under fluoroscopy guidance (fluoroscopy image stored on file in the radiology Department ) Preoperative diagnosis= 1- Right sacroiliitis 2-lumbar spondylosis facet arthropathy Postoperative diagnosis=Same as preop Diagnosis . Complication = none Condition= stable Anesthesia= moderate sedation with intravenous Versed 2 mg , and fentanyl 100 micrograms . Sedation start time: 1034 Sedation end time : 1042 Indication for the procedure= patient complaining of low back pain , examination was positive for severe tenderness over the right sacroiliac joints , and patient diagnosed with sacroiliitis, for this reason she was good candidate for sacroiliac joint steroid injection. Description of the procedure= procedure risk and benefits discussed with the patient, including but not limited, risk of infection and bleeding, and ALLERGIC reaction to the medication and not complete pain relief and patient agreed with the preceding patient taken to the operating room, placed in prone position or standard monitors applied to the patient then after induction of anesthesia back prepped with chlorhexidine 3 times , Then under strict sterile technique, first I did the right sacroiliac joint the which was identified under fluoroscopy guidance been local infiltration of the skin and subcu interstitial with lidocaine 1% then 22-gauge Quincke Needle advanced slowly under fluoroscopy and placed in the right sacroiliac joint needle placement confirmed with AP and oblique and lateral view and after appropriate needle placement confirmed and after negative aspiration, or heme , then Ropivacaine 0.5% 4 mL, and 60 mg of Depo-Medrol mixed together and injected in the right sacroiliac joint after negative aspiration patient tolerated the procedure well without any complication.
[2022-08-05] MEDS ORDERED: IV FLUID CONTINUATION 1,000 ML IV ONE (10:50)
--- NOTE | 2022-08-05 11:06 | FL ---
EXAMINATION TYPE: FL guided pain mgmt statistic DATE OF EXAM: 08/05/2022 HISTORY: Fluoroscopy time 5 seconds of fluoroscopy provided. IMPRESSION: 1. Fluoroscopy time.
[2022-08-05 11:22] VITALS: BP 103/70; PULSE 77
== END 2022-08-05 11:25 | disposition home or self-care (01) ==
LOC: ORPAIN 09:55
PROVIDERS: ATTEND Specialist
DX: M46.1 Sacroiliitis, not elsewhere classified (principal); Z88.0 Allergy status to penicillin; Z88.1 Allergy status to other antibiotic agents
CPT/HCPCS: J2250; J1040; J3010; J2795; G0260; 27096

== ENCOUNTER → 2022-08-06 | Outpatient (CLI) | payer OTHER ==
--- NOTE | 2022-08-06 13:19 | US ---
EXAMINATION TYPE: US kidneys/renal and bladder DATE OF EXAM: 08/06/2022 COMPARISON: US 05/12/30 CLINICAL HISTORY: N13.0 HYDRONEPHROSIS. EXAM MEASUREMENTS: Right Kidney: 9.2 x 5.3 x 4.2 cm Left Kidney: 10.4 x 4.5 x 4.3 cm Right Kidney: somewhat obscured by overlying bowel gas, portions visualized wnl Left Kidney: echogenic foci mid measuring 0.3 x 0.2 x 0.3cm Bladder: wnl Bilateral Jets seen: Bilateral Normal Post Void Residual: No There is no evidence for hydronephrosis at this point in time. No nephrolithiasis is seen. No jennifer s are identified. The urinary bladder is anechoic. Bilateral ureteral jets are seen. IMPRESSION: 1. No evidence of obstructive uropathy. 2. Left no obstructing calculi. 3. Minimal limited evaluation of the right kidney.
== END | disposition home or self-care (01) ==
LOC: RADUSWWP 12:20
PROVIDERS: ATTEND Family Medicine
DX: N13.0 Hydronephrosis with ureteropelvic junction obstruction (principal)
CPT/HCPCS: 76770

== ENCOUNTER → 2022-12-17 | Outpatient (CLI) | payer OTHER ==
--- NOTE | 2022-12-17 16:34 | XR ---
EXAMINATION TYPE: XR cervical spine comp DATE OF EXAM: 12/17/2022 12:55 PM INDICATION: Patient age:Female; 57 years old; Reason for study: [id number] CERVICALGIA, MIKE SHLD PAIN; COMPARISON: None. TECHNIQUE: The cervical spine was imaged in frontal, lateral, odontoid and bilateral oblique. FINDINGS: The osseous structures show normal alignment without evidence of an acute fracture. No significant ve rtebral body osteophytes or facet joint arthropathy. The intervertebral disk spaces are preserved. P edicles are intact. Soft tissues are within normal limits. The odontoid appears intact. IMPRESSION: 1. No fracture or dislocation. 2. No significant degenerative disc disease changes of the cervical spine.
--- NOTE | 2022-12-17 16:36 | XR ---
EXAMINATION TYPE: XR shoulder limited bilateral DATE OF EXAM: 12/17/2022 12:55 PM INDICATION: Patient age:Female; 57 years old; Reason for study: [id number] CERVICALGIA, MIKE SHLD PAIN; COMPARISON: none. TECHNIQUE: The right shoulder was examined in AP, internally rotated and scapular Y projections. FINDINGS: No evidence of acute osseous pathology, joint dislocation, or soft tissue swelling. The remaining por tions of the visualized chest are unremarkable. Mild degeneration changes of the acromioclavicular an d glenohumeral joints bilaterally with minimal osteophyte formation and hypertrophy changes. IMPRESSION: 1. No acute osseous pathology. 2. Mild osteoarthrosis changes of the bilateral shoulders
== END | disposition home or self-care (01) ==
LOC: RADXRYALE 11:30
PROVIDERS: ATTEND Physician Assistant
DX: M19.011 Primary osteoarthritis, right shoulder (principal); M19.012 Primary osteoarthritis, left shoulder; M54.2 Cervicalgia
CPT/HCPCS: 72050

== ENCOUNTER → 2023-02-19 | Outpatient (CLI) | payer OTHER ==
--- NOTE | 2023-02-20 08:51 | MM ---
Reason for Exam: Screening (asymptomatic). Last mammogram was performed 1 year(s) and 5 month(s) ago. Patient History: Menarche at age 11. First Full-Term at age 24. Postmenopausal. Patient has history of breast feeding. Maternal aunt had breast cancer, age 60. Risk Values: Araceli 5 year model risk: 1.6%. NCI Lifetime model risk: 8.1%. Prior Study Comparison: 10/29/2018 Bilateral Screening Mammogram, [facility]. 05/03/2020 Bilateral Screening Mammogram, [facility]. 09/09/2021 Bilateral Screening Mammogram, [facility]. Tissue Density: The breast tissue is heterogeneously dense. This may lower the sensitivity of mammography. Findings: Analyzed By CAD. There is no suspicious group of microcalcifications or new suspicious mass in either breast. Overall Assessment: Negative, BI-RAD 1 Management: Screening Mammogram of both breasts in 1 year. A clinical breast exam by your physician is recommended on an annual basis and results should be correlated with mammographic findings. Electronically signed and approved by: Victorino Elder M.D.
== END | disposition home or self-care (01) ==
LOC: RADMAMWWP 13:39
PROVIDERS: ATTEND Family Medicine
DX: Z12.31 Encounter for screening mammogram for malignant neoplasm of breast (principal); Z78.0 Asymptomatic menopausal state; Z80.3 Family history of malignant neoplasm of breast
CPT/HCPCS: 77063; 77067

== ENCOUNTER → 2023-09-03 | Outpatient (CLI) | payer OTHER ==
--- NOTE | 2023-09-04 10:18 | CTL ---
Addendum: LUNG RADS2-benign finding recommend 12 month annual screening.
== END | disposition home or self-care (01) ==
LOC: RADCTMAIN 17:37
PROVIDERS: ATTEND Family Medicine
DX: Z12.2 Encounter for screening for malignant neoplasm of respiratory organs (principal); F17.210 Nicotine dependence, cigarettes, uncomplicated
CPT/HCPCS: 71271

== ENCOUNTER → 2025-01-20 | Outpatient (CLI) | payer OTHER ==
--- NOTE | 2025-01-20 11:17 | MM ---
Reason for Exam: Screening (asymptomatic). Last mammogram was performed 1 year(s) and 11 month(s) ago. Patient History: Menarche at age 11. First Full-Term at age 24. Postmenopausal. Patient has history of breast feeding. Maternal aunt had breast cancer, age 60. Risk Values: Araceli 5 year model risk: 1.6%. NCI Lifetime model risk: 7.9%. Prior Study Comparison: 05/03/2020 Bilateral Screening Mammogram, [facility]. 09/09/2021 Bilateral Screening Mammogram, [facility]. 02/19/2023 Bilateral MG 3D screening mammo w/cad, [facility]. Tissue Density: There are scattered areas of fibroglandular density. Findings: Analyzed By CAD. Right breast: There is no suspicious group of microcalcifications or new suspicious mass. Left breast: There is no suspicious group of microcalcifications or new suspicious mass. Overall Assessment: Negative, BI-RAD 1 Management: Screening Mammogram of both breasts in [address] [facility] will attempt to contact patient to return for supplemental views and ultrasound if indicated. Patient should continue monthly self-breast exams. A clinical breast exam by your physician is recommended on an annual basis. This exam should not preclude additional follow-up of suspicious palpable abnormalities. Note on Araceli scores and lifetime risk: 1. A Araceli score greater than 3% is considered moderate risk. If this is the case, consider specialist referral to assess eligibility for a risk reducing agent. 2. If overall lifetime risk for the development of breast cancer is 20% or higher, the patient may qualify for future screening with alternating mammogram and breast MRI. [facility], , 01/20/2025 11:02 AM. Electronically signed and approved by: Jordan Nicole DO
--- NOTE | 2025-01-20 17:51 | CTL ---
EXAMINATION TYPE: CT Low Dose Lung DATE OF EXAM: 01/20/2025 11:59 AM COMPARISON: None. SCREENING VISIT: Subsequent CT DIAGNOSTIC QUALITY: Satisfactory CLINICAL INDICATION: Female, 59 years old with history of [id number] SUZI DEP, , Lung cancer screening, Hi story of tobacco use. TECHNIQUE: Low dose computed tomography scan was performed through the chest at 1 mm thick sections a nd reconstructed images in the coronal plane at 1 mm thick sections. Contrast used: mL of , (none if empty) Oral contrast used: (none if empty) CT DLP: 71.10 mGycm, Automated exposure control for dose reduction was used. CT CTDI: mGy, Automated exposure control for dose reduction was used. FINDINGS: LUNG NODULES: None. LUNGS: COPD: Severity: None Fibrosis: Severity: None Lymph nodes: None Other findings: None RIGHT PLEURAL SPACE: Effusion: None Calcification: None Thickening: None Pneumothorax: None LEFT PLEURAL SPACE: Effusion: None Calcification: None Thickening: None Pneumothorax: None HEART: Other: Ascending thoracic aorta at the level the main pulmonary artery measures 2.7 cm. The main pul monary artery at the bifurcation measures 2.5 cm. Heart Size: Normal Coronary calcification: Pericardial effusion: None OTHER FINDINGS: Upper abdomen: Normal Bony thorax: Normal Supraclavicular region: Normal IMPRESSION: 1. No suspicious changes to suggest primary or metastatic neoplasm FOLLOW UP CT CHEST RECOMMENDATION: Follow-up low-dose CT chest one year CT LUNG RAD: Lung-Rad 1 Negative [facility], Workstation: [employer], 01/20/2025 5:49 PM
--- NOTE | 2025-01-24 12:40 | BD ---
EXAMINATION TYPE: Axial Bone Density DATE OF EXAM: 01/20/2025 CLINICAL HISTORY: 59 years old Female. ICD-10 CODE: M85.80 DISORDER OF BONE , Additional History: Height: 58.7 in Weight: 145 lbs FRAX RISK QUESTIONS: Secondary Osteoporosis: 3. Menopause before 45: age 42 EXAM MEASUREMENTS: Bone mineral densitometry was performed using the [employer] System. Bone mineral density as measured about the Lumbar spine is: ----- L1-L4(G/cm2): 0.973 T Score Values are as follows: ----- L1: -1.6 ----- L2: -2.9 ----- L3: -1.9 ----- L4: -1.0 ----- L1-L4: -1.7 Z Score Values are as follows: ----- L1: -0.3 ----- L2: -1.6 ----- L3: -0.5 ----- L4: 0.3 ----- L1-L4: -0.4 Bone mineral density has: Increased 0.8% since study of: 09/27/2021 Bone mineral density about the R hip (g/cm2): 0.877 Bone mineral density about the L hip (g/cm2): 0.914 T Score values are as follows: -----R Neck: -1.7 -----L Neck: -1.6 -----R Total: -1.0 -----L Total: -0.7 Z Score values are as follows: -----R Neck: -0.4 -----L Neck: -0.3 -----R Total: 0.0 -----L Total: 0.3 Bone mineral density has: Increased 0.1% since study of: 09/27/2021 FRAX%s: The graph provided illustrates a 8.9% chance for a major osteoporotic fx and a 0.9% chance fo r the hips probability for fx in 10 years time. IMPRESSION: Osteopenia (T Score between -2.5 and -1). There is slightly increased risk of fracture and the patient may be considered for treatment. Re-Screen 2-5 years. NOTE: T-SCORE=SD OF THE YOUNG ADULT MEAN. [facility], , 01/23/2025 5:16 PM
== END | disposition home or self-care (01) ==
LOC: RADMAMWWP 10:36
PROVIDERS: ATTEND Family Medicine
DX: Z12.31 Encounter for screening mammogram for malignant neoplasm of breast (principal); Z12.2 Encounter for screening for malignant neoplasm of respiratory organs; F17.210 Nicotine dependence, cigarettes, uncomplicated; M85.89 Other specified disorders of bone density and structure, multiple sites; R92.323 Mammographic fibroglandular density, bilateral breasts; Z78.0 Asymptomatic menopausal state; Z80.3 Family history of malignant neoplasm of breast
CPT/HCPCS: 71271; 77063; 77067; 77080